=== PATIENT | female | born 1930 | race Caucasian/White ===

== ENCOUNTER 2019-11-03 14:11 | Observation (INO) | payer MEDICARE ==
[~2019-11-03] VITALS: Ht 172.7 cm; Wt 96.3 kg
[2019-11-03 16:11] LABS: BASO % 1 % (0-3); EOS % 1 % (0-3); HEMATOCRIT 24.1 % (36.0-47.0); HEMOGLOBIN 7.5 g/dL (12.0-15.5); LYMPH # 1.6 x10^3/uL (1.0-4.8); LYMPH % 44 % (24-48); MEAN CORPUSCULAR HEMOGLOBIN 23 pg (25-35); MEAN CORPUSCULAR HGB CONC 31 g/dL (31-37); MEAN CORPUSCULAR VOLUME 76 fL (79-100); MONO # 0.3 x10^3/uL (0.0-1.1); MONO % 9 % (0-9); NEUT # 1.6 x10^3/uL (1.8-7.7); NEUT % 44 % (31-73); PLATELET COUNT 167 x10^3/uL (140-400); RED BLOOD COUNT 3.18 x10^6/uL (3.50-5.40); RED CELL DISTRIBUTION WIDTH 17.2 % (11.5-14.5); WHITE BLOOD COUNT 3.5 x10^3/uL (4.0-11.0)
--- NOTE | 2019-11-03 16:12 | EKG ---
[facility] [address] [place] [address] Test Date: 2019-11-03 Test Time: 15:24:02 Pat Name: STEPHANIE MUNROE Department: Room: Gender: F [place] Cutter: : [id number] Requested By: DEEP HUBER Order Number: [id number] Reading MD: Measurements Intervals Harvel Rate: 69 P: AR: QRS: -35 QRSD: 86 T: 19 QT: 478 QTc: 514 Interpretive Statements IRREGULAR RHYTHM, NO P-WAVE FOUND ABNORMAL LEFT AXIS DEVIATION LEFT ANTERIOR FASCICULAR BLOCK PROLONGED QT ABNORMAL ECG RI6.01 No previous ECG available for comparison
[2019-11-03 16:23] LABS: CREATININE 1.2 mg/dL (0.6-1.0); GFR 42.3; POTASSIUM 3.7 mmol/L (3.5-5.1); PROTHROMBIN TIME PATIENT 16.5 SEC (11.7-14.0)
--- NOTE | 2019-11-03 16:25 | PHYS DOC ---
Past Medical History Past Medical History: A-Fib, Diabetes-Type II, Hypertension, [place] Past Surgical History: Appendectomy, Cholecystectomy, Hysterectomy, Other Additional Past Surgical Histo: CARDIAC STENTS Alcohol Use: None Adult General Chief Complaint Chief Complaint: WEAKNESS/GENERALIZED HPI HPI Patient is a 89 year old female, accompanied by her daughter, who presents to the emergency department with complaints of generalized weakness. Patient states she has felt weak all over for the last 6 weeks. She suffers from chronic anemia and she usually has problems with fatigue and weakness when her hemoglobin is l ow. Her hops farmworker, Dr. Gonzales, told her to go to the emergency department because she might need a blood transfusion. Patient states that her hemoglobin was [address] Gonzales. Patient denies any recent bloody stools, blood in her urine, or hematemesis. She denies any abdominal pain, fever, cough, chest pain, palpitations, abdominal pain, nausea, vomiting, diarrhea, dysuria, increased urinary frequency, or back pain. She currently denies any pain. All other ROS is neg unless otherwise noted in HPI. Review of Systems Review of Systems See Above Allergies Allergies Allergies Coded Allergies Type Severity Reaction Last Updated Verified Iodinated Contrast Media Allergy Unknown 11/03/19 Yes Sulfa (Sulfonamide Antibiotics) Allergy Unknown 11/03/19 Yes Physical Exam Physical Exam See Above Constitutional: Well developed, well nourished, no acute distress, non-toxic appearance. [] HENT: Normocephalic, atraumatic, bilateral external ears normal, nose normal. [] Eyes: PERRLA, EOMI, conjunctiva normal, no discharge. [] Neck: Normal range of motion, no stridor. [] Cardiovascular:Heart rate regular rhythm, no murmur [] Lungs & Thorax: Bilateral breath sounds clear to auscultation, Respirations even and unlabored, no retractions, no respiratory distress [] Abdomen: Bowel sounds normal, soft, no tenderness, no masses, no pulsatile masses. [] Skin: Warm, dry, no erythema, no rash, pale. [] Extremities: No cyanosis, ROM intact Neurologic: Alert and oriented X 3, no focal deficits noted. [] Psychologic: Affect normal, judgement normal, mood normal. [] Current Patient Data Vital Signs Vital Signs Date Time Temp Pulse Resp B/P (MAP) Pulse Ox O2 Delivery O2 Flow Rate FiO2 11/03/19 16:47 66 20 95 11/03/19 15:24 98.0 221/87 (131) Room Air 98.0 Lab Values Laboratory Tests Test 11/03/19 15:55 White Blood Count 3.5 x10^3/uL (4.0-11.0) L Red Blood Count 3.18 x10^6/uL (3.50-5.40) L Hemoglobin 7.5 g/dL (12.0-15.5) L Hematocrit 24.1 % (36.0-47.0) L Mean Corpuscular Volume 76 fL (79-100) L Mean Corpuscular Hemoglobin 23 pg (25-35) L Mean Corpuscular Hemoglobin Concent 31 g/dL (31-37) Red Cell Distribution Width 17.2 % (11.5-14.5) H Platelet Count 167 x10^3/uL (140-400) Neutrophils (%) (Auto) 44 % (31-73) Lymphocytes (%) (Auto) 44 % (24-48) Monocytes (%) (Auto) 9 % (0-9) Eosinophils (%) (Auto) 1 % (0-3) Basophils (%) (Auto) 1 % (0-3) Neutrophils # (Auto) 1.6 x10^3/uL (1.8-7.7) L Lymphocytes # (Auto) 1.6 x10^3/uL (1.0-4.8) Monocytes # (Auto) 0.3 x10^3/uL (0.0-1.1) Eosinophils # (Auto) 0.0 x10^3/uL (0.0-0.7) Basophils # (Auto) 0.0 x10^3/uL (0.0-0.2) Prothrombin Time 16.5 SEC (11.7-14.0) H Prothrombin Time INR 1.4 (0.8-1.1) H Activated Partial Thromboplast Time 30 SEC (24-38) Sodium Level 144 mmol/L (136-145) Potassium Level 3.7 mmol/L (3.5-5.1) Chloride Level 107 mmol/L (98-107) Carbon Dioxide Level 32 mmol/L (21-32) Anion Gap 5 (6-14) L Blood Urea Nitrogen 20 mg/dL (7-20) Creatinine 1.2 mg/dL (0.6-1.0) H Estimated GFR (Cockcroft-Gault) 42.3 BUN/Creatinine Ratio 17 (6-20) Glucose Level 200 mg/dL (70-99) H Calcium Level 8.0 mg/dL (8.5-10.1) L Total Bilirubin 0.6 mg/dL (0.2-1.0) Aspartate Amino Transferase (AST) 13 U/L (15-37) L Alanine Aminotransferase (ALT) 10 U/L (14-59) L Alkaline Phosphatase 58 U/L (46-116) Total Protein 6.2 g/dL (6.4-8.2) L Albumin 3.0 g/dL (3.4-5.0) L Albumin/Globulin Ratio 0.9 (1.0-1.7) L Laboratory Tests 11/03/19 15:55 Laboratory Tests 11/03/19 15:55 EKG EKG 1524- Sr rate 69, prolonged QT, NO STEMI read by Dr. Kline[] Radiology/Procedures Radiology/Procedures [] Course & Med Decision Making Course & Med Decision Making Pertinent Labs and Imaging studies reviewed. (See chart for details) 1840- Spoke with Dr. Holder who is the admitting physician, and care was assumed following discussion of patient. Patient's vital signs stable, pt hypertensive hydralazine ordered in the ER. Patient remains afebrile, appears nontoxic, respirations even and unlabored. Patient will be admitted as OBS patient to the med/surg floor. Patient's case and plan of care also discussed with Dr. Hawkins. [] Dragon Disclaimer Dragon Disclaimer This electronic medical record was generated, in whole or in part, using a voice recognition dictation system. Departure Departure Impression: Primary Impression: Anemia Additional Impression: Hypertension Disposition: 09 ADMITTED INPATIENT Admitting Physician: DUSTIN (LIBERTY) Condition: STABLE Referrals: CINTHIA LUCAS MD (PCP) Problem Qualifiers Primary Impression: Anemia Anemia type: unspecified type Qualified Codes: D64.9 - Anemia, unspecified Additional Impression: Hypertension Hypertension type: unspecified Qualified Codes: I10 - Essential (primary) hypertension DEEP HUBER [employer]OTIVE MANUFA[employer]ER Nov 03, 2019 16:25
[2019-11-03 16:29] LABS: TOTAL BILIRUBIN 0.6 mg/dL (0.2-1.0)
[2019-11-03 16:52] LABS: ALBUMIN/GLOBULIN RATIO 0.9 (1.0-1.7); TOTAL PROTEIN 6.2 g/dL (6.4-8.2)
[2019-11-03 19:00] VITALS: BP 186/73
[2019-11-03] MEDS ORDERED: hydrALAZINE 20 MG/ML VIAL. IVP ONE (19:00)
--- NOTE | 2019-11-03 19:33 | SSS ---
ADMIT DATE: CHIEF COMPLAINT: Weakness and anemia. HISTORY OF PRESENT ILLNESS: The patient is a pleasant 89-year-old female who follows with Dr. Faye Gonzales for chronic anemia. Today, she followed up with Dr. Gonzales because she was weak. Dr. Gonzales checked the hemoglobin and it was 7. She was told to go to the ER. I have discussed the case with ER physician. We are going to admit the patient for observation and give her a unit of blood. Hope to get her home tomorrow. It should be noted that her symptoms are rated at 7/10. She has associated anxiety about this. Moving makes it worse and sitting still makes it better. PAST MEDICAL HISTORY: Chronic anemia, AFib, hypertension, myocardial infarction, appendectomy, cholecystectomy, hysterectomy and cardiac stents. ALLERGIES: None. FAMILY HISTORY: Coronary artery disease. SOCIAL HISTORY: She does not drink, smoke or take drugs. MEDICATIONS: Reviewed, please refer to the MRAD. REVIEW OF SYSTEMS: GENERAL: She complains of weakness. SKIN: No bruising, hair changes or rashes. EYES: No blurred, double or loss of vision. NOSE AND THROAT: No history of nosebleeds, hoarseness or sore throat. HEART: No history of palpitations, chest pain or shortness of breath on exertion. LUNGS: Denies cough, hemoptysis, wheezing or shortness of breath. GASTROINTESTINAL: Denies changes in appetite, nausea, vomiting, diarrhea or constipation. GENITOURINARY: No history of frequency, urgency, hesitancy or nocturia. NEUROLOGIC: Denies history of numbness, tingling, tremor or weakness. PSYCHIATRIC: She complains of anxiety. ENDOCRINE: No history of heat or cold intolerance, polyuria or polydipsia. EXTREMITIES: Denies muscle weakness, joint pain, pain on walking or stiffness. PHYSICAL EXAMINATION: VITALS: Within normal limits and are stable. GENERAL: No apparent distress. Alert and oriented. HEENT: Normal cephalic atraumatic, external auditory canals are patent. EYES: Extraocular muscles are intact, pupils are equally round and reactive to light and accommodation. MUSKULOSKELETAL: Well developed, well nourished, good range of motion. ENDOCRINE: No thyromegaly was palpated. LYMPHATICS: No cervical chain or axillary nodes were noted. HEMATOPOIETIC: No bruising NECK: Supple, no JVD, no thyromegaly was noted. LUNGS: Clear to auscultation in all lung king without rhonchi or wheezing. HEART: RRR, S1, S2 present. Peripheral pulses intact, no obvious murmurs were noted. ABDOMEN: Soft, nontender. Positive bowel sounds no organomegaly, normal bowel sounds. EXTREMITIES: Without any cyanosis, clubbing, or edema. Pedal pulses intact, Homans sign is negative. NEUROLOGIC: Normal speech, normal tone. A & O x3, moves all extremities, no obvious focal deficits. PSYCHIATRIC: Normal affect, normal mood. Stable. SKIN: No ulcerations or rashes, good skin turgor, no jaundice. VASCULAR: Good capillary refill, neurovascular bundle appears to be intact. LABORATORY DATA: Hemoglobin is 7. ASSESSMENT AND PLAN: Acute on chronic anemia. We will go ahead and admit the patient for observation and give her 1 unit of blood. Continue her home meds, DVT prophylaxis. Full code. Trend hemoglobin. Hope to discharge tomorrow if stable. ALEXI KOENIG DO DR: TASHI/meli JOB#: [id number] / [id number]
[2019-11-03] MEDS ORDERED: INSU100I27 SQ (21:30)
[2019-11-03] MEDS ORDERED: CARV25TA2 PO (21:30)
[2019-11-03] MEDS ORDERED: FURO40TA4 PO (21:30)
[2019-11-03] MEDS ORDERED: HYDR-2869 PO (21:30)
[2019-11-03] MEDS ORDERED: LISI-334 PO (21:30)
[2019-11-03] MEDS ORDERED: DRON400T PO (21:31)
[2019-11-03] MEDS ORDERED: PRAV40TA2 PO (21:32)
[2019-11-03] MEDS ORDERED: APIX5TAB PO (21:33)
--- NOTE | 2019-11-03 22:00 | NUR ---
The patient, STEPHANIE MUNROE, 89 y/o, F admitted by ALEXI KOENIG III, DO, was given written information regarding hospital policies, unit procedures and contact persons. Valuables were checked and Pt belonging left in room with Pt.
[2019-11-03 22:33] VITALS: BP 175/72
[2019-11-03 22:51] VITALS: BP 152/73
[2019-11-03 23:00] VITALS: BP 175/72
[2019-11-03] MEDS ORDERED: INSULIN GLARGINE SYRINGE. SQ SCH (23:00)
[2019-11-03] MEDS: DRONEDARONE HCL 400 MG TABLET PO SCH (23:33)
[2019-11-03] MEDS: APIXABAN 5 MG TABLET. PO SCH (23:33)
[2019-11-03] MEDS: LISINOPRIL 20 MG TABLET PO SCH (23:34)
[2019-11-03 23:51] VITALS: BP 182/85
[2019-11-04 00:21] VITALS: BP 181/82
[2019-11-04 01:15] VITALS: BP 156/78
[2019-11-04 03:00] VITALS: BP 182/79
[2019-11-04 03:05] LABS: BILIRUBIN,URINE NEGATIVE (NEG); CLARITY,URINE CLEAR; COLOR,URINE YELLOW; NITRITE,URINE NEGATIVE (NEG); PROTEIN,URINE NEGATIVE (NEG-TRACE)
[2019-11-04 03:16] LABS: BACTERIA,URINE 0 /HPF (0-FEW); RBC,URINE OCC /HPF (0-2); SQUAMOUS EPITHELIAL CELL,UR FEW /LPF; WBC,URINE >40 /HPF (0-4)
[2019-11-04 03:17] LABS: HYALINE CASTS, URINE FEW /HPF
[2019-11-04 07:00] VITALS: BP 199/93
[2019-11-04] MEDS ORDERED: CARVEDILOL 12.5 MG TABLET. PO SCH (08:00)
[2019-11-04] MEDS: DRONEDARONE HCL 400 MG TABLET PO SCH (08:35)
[2019-11-04] MEDS: APIXABAN 5 MG TABLET. PO SCH (08:35)
[2019-11-04] MEDS: LISINOPRIL 20 MG TABLET PO SCH (08:36)
[2019-11-04] MEDS: INSULIN LISPRO 300 UNITS/3 ML VIAL. SQ SCH ×2 (09:00→11:52)
[2019-11-04] MEDS ORDERED: cloNIDine HCL 0.1 MG TABLET PO PRN (09:00)
[2019-11-04] MEDS ORDERED: FUROSEMIDE 40 MG TABLET. PO SCH (09:00)
[2019-11-04] MEDS ORDERED: IV DEXTROSE 5% 250 ML BAG. IV PRN (09:00)
[2019-11-04] MEDS ORDERED: ONDANSETRON PF 4 MG/2 ML VIAL. IVP PRN (09:00)
[2019-11-04] MEDS ORDERED: ACETAMINOPHEN 500 MG TABLET PO PRN (09:00)
[2019-11-04] MEDS ORDERED: DEXTROSE 50% 25 GM / 50ML DISP.SYRIN. IV PRN (09:00)
[2019-11-04] MEDS ORDERED: ACETAMINOPHEN/CODEINE 300/30MG TABLET. PO PRN (09:00)
[2019-11-04] MEDS ORDERED: cloNIDine HCL 0.1 MG TABLET PO ONE (09:15)
[2019-11-04 09:30] LABS: BASO # 0.1 x10^3/uL (0.0-0.2); BASO % 2 % (0-3); EOS % 1 % (0-3); HEMATOCRIT 26.8 % (36.0-47.0); HEMOGLOBIN 8.4 g/dL (12.0-15.5); LYMPH % 28 % (24-48); MEAN CORPUSCULAR HEMOGLOBIN 24 pg (25-35); MEAN CORPUSCULAR HGB CONC 31 g/dL (31-37); MEAN CORPUSCULAR VOLUME 75 fL (79-100); MONO # 0.3 x10^3/uL (0.0-1.1); MONO % 10 % (0-9); NEUT % 60 % (31-73); PLATELET COUNT 164 x10^3/uL (140-400); RED BLOOD COUNT 3.58 x10^6/uL (3.50-5.40); RED CELL DISTRIBUTION WIDTH 17.6 % (11.5-14.5); WHITE BLOOD COUNT 3.4 x10^3/uL (4.0-11.0)
--- NOTE | 2019-11-04 09:34 | PDOC2 ---
CONSULT Date of Consult Date of Consult DATE: 11/04/19 TIME: : Reason for consultation: Anemia Consult: Hematology oncology, Dr. Kenia Gonzales History of present illness: She is an 89-year-old female with weakness, acute, severe, worsened due to anemia, improved with transfusion, admitted for blood transfusion with a hemoglobin of 7.5, MCV of 76, recently started a picks up and full dose from her liquor establishment manager with a history of A. fib. Past medical history: Atrial fibrillation Lymphedema Coronary artery disease [place] Iron deficient anemia, gastric polyp in 2016, on anticoagulation, sprue panel negative, received 4 units transfusions July 2016, IV iron as needed Hypertension Hyperlipidemia Diabetes mellitus 2 CHF with ischemic cardiomyopathy DVT on Coumadin many years in the past remotely Macular degeneration with blindness Severe pulmonary hypertension PVD Skin cancer TIA Past surgical history: Vascular stents Colonoscopy EGD Left ankle fracture repair CEA Eye surgery Appendectomy Goiter surgery Hysterectomy Cardiac catheterization Skin cancer excision Cholecystectomy Allergies: Sulfa, iodine, latex Medications: See attached list Social history: , no tobacco or alcohol Family history: Mom with an unknown tumor Review of systems: Weakness, lymphedema, no known bleeding, blindness, debility, otherwise current 10 point review of systems negative Physical exam: Vitals reviewed Gen.: Elderly obese female resting in bed in no acute distress, not able to see me HEENT: mucous membranes moist, head normocephalic atraumatic Neck: Supple, no lymphadenopathy Lymph nodes: No palpable lymphadenopathy neck or axilla on limited exam Lungs: Breathing comfortably without evidence of respiratory distress Abdomen: Soft, nontender, nondistended Extremities: No cyanosis, does have bilateral lower extremity lymphedema Skin: No obvious rashes or skin breakdown Neuro: Alert and oriented 3 Psych: Pleasant mood and affect Lab reviewed: White count 3.5, hemoglobin 7.5, platelets 167, MCV of 76 INR 1.4 PTT 38 Urinalysis moderate leukoesterase, greater than 40 white blood cells Creatinine 1.2 Rads reviewed: None available here this admit Case discussed with: Patient and her daughter, records reviewed in [facility] and [facility], including labs and radiology, please see note for summary details. Assessment and Plan: She is an 89-year-old female with anemia, history of iron deficiency, history of gastric polyp, was on aspirin in the past but recently transition to apixaban full dose. Heart failure with coronary artery disease and A. fib: Would consider half dose apixaban, they will discuss this with their liquor establishment manager Anemia: Some improvement after 1 unit transfusion History of iron deficiency: We'll check iron levels and re-dose IV iron, can be done as an outpatient, as needed Debility: Improved after transfusion, may need therapy at home? Defer to primary Disposition: Likely today Hypertension: Per others Thank you kindly for this consultation, and please don't hesitate to call with further questions. Current Problem List Problem List Problems Medical Problems: (1) Anemia Status: Acute (2) Hypertension Status: Acute Current Medications Current Medications Current Medications Hydralazine HCl (Apresoline Inj) 10 mg 1X ONCE IVP Last administered on 11/03/19at 19:00; Start 11/03/19 at 19:00; Stop 11/03/19 at 19:01; Status DC Apixaban (Eliquis) 5 mg BID PO Last administered on 11/04/19at 08:35; Start 10/09 04/26 at 23:00 Dronedarone (Multaq) 400 mg BID PO Last administered on 11/04/19at 08:35; Start 11/03/19 at 23:00 Furosemide (Lasix) 40 mg DAILY PO Last administered on 11/04/19at 08:35; Start 11/04/19 at 09:00 Hydralazine HCl (Apresoline) 50 mg TID PO Last administered on 11/04/19at 08:35; Start 11/03/19 at 23:00 Lisinopril (Prinivil) 20 mg BID PO Last administered on 11/04/19at 08:36; Start 11/03/19 at 23:00 Carvedilol (Coreg) 25 mg BIDWMEALS PO Last administered on 11/04/19at 08:36; Start 11/04/19 at 08:00 Non-Formulary Medication (Insulin Detemir (Levemir Flextouch)) 16 unit HS SQ ; Start 11/04/19 at 21:00; Status UNV Atorvastatin Calcium (Lipitor) 10 mg HS PO ; Start 11/04/19 at 21:00 Insulin Glargine (Lantus Syringe) 16 unit QHS SQ Last administered on 11/03/19at 23:41; Start 1/27/20 at 23:00 Insulin Human Lispro (HumaLOG) 0-9 UNITS TIDWMEALS SQ ; Start 11/04/19 at 09:00 Dextrose (Dextrose 50%-Water Syringe) 12.5 gm PRN Q15MIN PRN IV SEE COMMENTS; Start 11/04/19 at 09:00 Dextrose (Iv Dextrose 5%) 250 ml PRN Q15MIN PRN IV SEE COMMENTS; Start 11/04/19 at 09:00 Acetaminophen (Tylenol) 500 mg PRN Q6HRS PRN PO MILD PAIN / TEMP; Start 11/04/19 at 09:00 Acetaminophen/ Codeine Phosphate (Tylenol #3) 1 tab PRN Q6HRS PRN PO MODERATE PAIN; Start 11/04/19 at 09:00 Ondansetron HCl (Zofran) 4 mg PRN Q6HRS PRN IVP NAUSEA/VOMITING; Start 11/04/19 at 09:00 Clonidine HCl (Catapres) 0.1 mg PRN Q1HR PRN PO HYPERTENSION; Start 11/04/19 at 09:00 Clonidine HCl (Catapres) 0.1 mg 1X ONCE PO ; Start 11/04/19 at 09:15; Stop 11/04/19 at 09:16; Status DC Active Scripts Active Reported Pravastatin Sodium 40 Mg Tablet 1 Tab PO DAILY Multaq (Dronedarone Hcl) 400 Mg Tablet 1 Tab PO BID Levemir Flextouch (Insulin Detemir) 100 Unit/1 Ml Insuln.pen 16 Unit SQ HS Carvedilol 25 Mg Tablet 25 Mg PO BIDWMEALS Lisinopril 20 Mg Tablet 20 Mg PO BID Hydralazine Hcl 50 Mg Tablet 1 Tab PO TID Furosemide 40 Mg Tablet 40 Mg PO DAILY Eliquis (Apixaban) 5 Mg Tablet 5 Mg PO BID Allergies Allergies: Coded Allergies: latex (Verified Allergy, Mild, Rash, 11/04/19) Iodinated Contrast Media (Verified Allergy, Unknown, 11/03/19) Sulfa (Sulfonamide Antibiotics) (Verified Allergy, Unknown, 11/03/19) Vitals VITALS Vital Signs Date Time Temp Pulse Resp B/P (MAP) Pulse Ox O2 Delivery O2 Flow Rate FiO2 11/04/19 08:36 78 199/93 11/04/19 07:00 98.0 18 94 Room Air 98.0 Labs Labs Laboratory Tests Test 11/03/19 15:55 11/03/19 21:06 11/04/19 01:20 11/04/19 07:32 White Blood Count 3.5 x10^3/uL (4.0-11.0) Red Blood Count 3.18 x10^6/uL (3.50-5.40) Hemoglobin 7.5 g/dL (12.0-15.5) Hematocrit 24.1 % (36.0-47.0) Mean Corpuscular Volume 76 fL (79-100) Mean Corpuscular Hemoglobin 23 pg (25-35) Mean Corpuscular Hemoglobin Concent 31 g/dL (31-37) Red Cell Distribution Width 17.2 % (11.5-14.5) Platelet Count 167 x10^3/uL (140-400) Neutrophils (%) (Auto) 44 % (31-73) Lymphocytes (%) (Auto) 44 % (24-48) Monocytes (%) (Auto) 9 % (0-9) Eosinophils (%) (Auto) 1 % (0-3) Basophils (%) (Auto) 1 % (0-3) Neutrophils # (Auto) 1.6 x10^3/uL (1.8-7.7) Lymphocytes # (Auto) 1.6 x10^3/uL (1.0-4.8) Monocytes # (Auto) 0.3 x10^3/uL (0.0-1.1) Eosinophils # (Auto) 0.0 x10^3/uL (0.0-0.7) Basophils # (Auto) 0.0 x10^3/uL (0.0-0.2) Prothrombin Time 16.5 SEC (11.7-14.0) Prothromb Time International Ratio 1.4 (0.8-1.1) Activated Partial Thromboplast Time 30 SEC (24-38) Sodium Level 144 mmol/L (136-145) Potassium Level 3.7 mmol/L (3.5-5.1) Chloride Level 107 mmol/L (98-107) Carbon Dioxide Level 32 mmol/L (21-32) Anion Gap 5 (6-14) Blood Urea Nitrogen 20 mg/dL (7-20) Creatinine 1.2 mg/dL (0.6-1.0) Estimated GFR (Cockcroft-Gault) 42.3 BUN/Creatinine Ratio 17 (6-20) Glucose Level 200 mg/dL (70-99) Calcium Level 8.0 mg/dL (8.5-10.1) Total Bilirubin 0.6 mg/dL (0.2-1.0) Aspartate Amino Transf (AST/SGOT) 13 U/L (15-37) Alanine Aminotransferase (ALT/SGPT) 10 U/L (14-59) Alkaline Phosphatase 58 U/L (46-116) Total Protein 6.2 g/dL (6.4-8.2) Albumin 3.0 g/dL (3.4-5.0) Albumin/Globulin Ratio 0.9 (1.0-1.7) Glucose (Fingerstick) 138 mg/dL (70-99) 110 mg/dL (70-99) Urine Collection Type Unknown Urine Color Yellow Urine Clarity Clear Urine pH 7.0 Urine Specific [place] 1.015 Urine Protein Negative mg/dL (NEG-TRACE) Urine Glucose (UA) Negative mg/dL (NEG) Urine Ketones (Stick) Negative mg/dL (NEG) Urine Blood Negative (NEG) Urine Nitrite Negative (NEG) Urine Bilirubin Negative (NEG) Urine Urobilinogen Dipstick 1.0 mg/dL (0.2 mg/dL) Urine Leukocyte Esterase Moderate (NEG) Urine RBC Occ /HPF (0-2) Urine WBC >40 /HPF (0-4) Urine Squamous Epithelial Cells Few /LPF Urine Transitional Epithelial Cells Occ /LPF Urine Renal Epithelial Cells Occ /LPF Urine Bacteria 0 /HPF (0-FEW) Urine Hyaline Casts Few /HPF Urine Mucus Mod /LPF Laboratory Tests Test 11/03/19 15:55 11/03/19 21:06 11/04/19 01:20 11/04/19 07:32 White Blood Count 3.5 x10^3/uL (4.0-11.0) Red Blood Count 3.18 x10^6/uL (3.50-5.40) Hemoglobin 7.5 g/dL (12.0-15.5) Hematocrit 24.1 % (36.0-47.0) Mean Corpuscular Volume 76 fL (79-100) Mean Corpuscular Hemoglobin 23 pg (25-35) Mean Corpuscular Hemoglobin Concent 31 g/dL (31-37) Red Cell Distribution Width 17.2 % (11.5-14.5) Platelet Count 167 x10^3/uL (140-400) Neutrophils (%) (Auto) 44 % (31-73) Lymphocytes (%) (Auto) 44 % (24-48) Monocytes (%) (Auto) 9 % (0-9) Eosinophils (%) (Auto) 1 % (0-3) Basophils (%) (Auto) 1 % (0-3) Neutrophils # (Auto) 1.6 x10^3/uL (1.8-7.7) Lymphocytes # (Auto) 1.6 x10^3/uL (1.0-4.8) Monocytes # (Auto) 0.3 x10^3/uL (0.0-1.1) Eosinophils # (Auto) 0.0 x10^3/uL (0.0-0.7) Basophils # (Auto) 0.0 x10^3/uL (0.0-0.2) Prothrombin Time 16.5 SEC (11.7-14.0) Prothromb Time International Ratio 1.4 (0.8-1.1) Activated Partial Thromboplast Time 30 SEC (24-38) Sodium Level 144 mmol/L (136-145) Potassium Level 3.7 mmol/L (3.5-5.1) Chloride Level 107 mmol/L (98-107) Carbon Dioxide Level 32 mmol/L (21-32) Anion Gap 5 (6-14) Blood Urea Nitrogen 20 mg/dL (7-20) Creatinine 1.2 mg/dL (0.6-1.0) Estimated GFR (Cockcroft-Gault) 42.3 BUN/Creatinine Ratio 17 (6-20) Glucose Level 200 mg/dL (70-99) Calcium Level 8.0 mg/dL (8.5-10.1) Total Bilirubin 0.6 mg/dL (0.2-1.0) Aspartate Amino Transf (AST/SGOT) 13 U/L (15-37) Alanine Aminotransferase (ALT/SGPT) 10 U/L (14-59) Alkaline Phosphatase 58 U/L (46-116) Total Protein 6.2 g/dL (6.4-8.2) Albumin 3.0 g/dL (3.4-5.0) Albumin/Globulin Ratio 0.9 (1.0-1.7) Glucose (Fingerstick) 138 mg/dL (70-99) 110 mg/dL (70-99) Urine Collection Type Unknown Urine Color Yellow Urine Clarity Clear Urine pH 7.0 Urine Specific [place] 1.015 Urine Protein Negative mg/dL (NEG-TRACE) Urine Glucose (UA) Negative mg/dL (NEG) Urine Ketones (Stick) Negative mg/dL (NEG) Urine Blood Negative (NEG) Urine Nitrite Negative (NEG) Urine Bilirubin Negative (NEG) Urine Urobilinogen Dipstick 1.0 mg/dL (0.2 mg/dL) Urine Leukocyte Esterase Moderate (NEG) Urine RBC Occ /HPF (0-2) Urine WBC >40 /HPF (0-4) Urine Squamous Epithelial Cells Few /LPF Urine Transitional Epithelial Cells Occ /LPF Urine Renal Epithelial Cells Occ /LPF Urine Bacteria 0 /HPF (0-FEW) Urine Hyaline Casts Few /HPF Urine Mucus Mod /LPF KENAI GONZALES MD Nov 04, 2019 09:34
--- NOTE | 2019-11-04 10:48 | PDOC3 ---
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 Atrial fibrillation Lymphedema Coronary artery disease [place] Iron deficient anemia, gastric polyp in 2016, on anticoagulation, sprue panel negative, received 4 units transfusions July 2016, IV iron as needed Hypertension Hyperlipidemia Diabetes mellitus 2 CHF with ischemic cardiomyopathy DVT on Coumadin many years in the past remotely Macular degeneration with blindness Severe pulmonary hypertension PVD Skin cancer TIA Final Diagnosis Problems Medical Problems: (1) Anemia Status: Acute (2) Hypertension Status: Acute Brief Hospital Course Allergies Allergies Coded Allergies Type Severity Reaction Last Updated Verified latex Allergy Mild Rash 11/04/19 Yes Iodinated Contrast Media Allergy Unknown 11/03/19 Yes Sulfa (Sulfonamide Antibiotics) Allergy Unknown 11/03/19 Yes Vital Signs Vital Signs Date Time Temp Pulse Resp B/P (MAP) Pulse Ox O2 Delivery O2 Flow Rate FiO2 11/04/19 08:36 78 199/93 11/04/19 07:00 98.0 18 94 Room Air 98.0 Lab Results Laboratory Tests Test 11/03/19 15:55 11/03/19 21:06 11/04/19 01:20 11/04/19 07:32 White Blood Count 3.5 x10^3/uL (4.0-11.0) Red Blood Count 3.18 x10^6/uL (3.50-5.40) Hemoglobin 7.5 g/dL (12.0-15.5) Hematocrit 24.1 % (36.0-47.0) Mean Corpuscular Volume 76 fL (79-100) Mean Corpuscular Hemoglobin 23 pg (25-35) Mean Corpuscular Hemoglobin Concent 31 g/dL (31-37) Red Cell Distribution Width 17.2 % (11.5-14.5) Platelet Count 167 x10^3/uL (140-400) Neutrophils (%) (Auto) 44 % (31-73) Lymphocytes (%) (Auto) 44 % (24-48) Monocytes (%) (Auto) 9 % (0-9) Eosinophils (%) (Auto) 1 % (0-3) Basophils (%) (Auto) 1 % (0-3) Neutrophils # (Auto) 1.6 x10^3/uL (1.8-7.7) Lymphocytes # (Auto) 1.6 x10^3/uL (1.0-4.8) Monocytes # (Auto) 0.3 x10^3/uL (0.0-1.1) Eosinophils # (Auto) 0.0 x10^3/uL (0.0-0.7) Basophils # (Auto) 0.0 x10^3/uL (0.0-0.2) Prothrombin Time 16.5 SEC (11.7-14.0) Prothromb Time International Ratio 1.4 (0.8-1.1) Activated Partial Thromboplast Time 30 SEC (24-38) Sodium Level 144 mmol/L (136-145) Potassium Level 3.7 mmol/L (3.5-5.1) Chloride Level 107 mmol/L (98-107) Carbon Dioxide Level 32 mmol/L (21-32) Anion Gap 5 (6-14) Blood Urea Nitrogen 20 mg/dL (7-20) Creatinine 1.2 mg/dL (0.6-1.0) Estimated GFR (Cockcroft-Gault) 42.3 BUN/Creatinine Ratio 17 (6-20) Glucose Level 200 mg/dL (70-99) Calcium Level 8.0 mg/dL (8.5-10.1) Total Bilirubin 0.6 mg/dL (0.2-1.0) Aspartate Amino Transf (AST/SGOT) 13 U/L (15-37) Alanine Aminotransferase (ALT/SGPT) 10 U/L (14-59) Alkaline Phosphatase 58 U/L (46-116) Total Protein 6.2 g/dL (6.4-8.2) Albumin 3.0 g/dL (3.4-5.0) Albumin/Globulin Ratio 0.9 (1.0-1.7) Glucose (Fingerstick) 138 mg/dL (70-99) 110 mg/dL (70-99) Urine Collection Type Unknown Urine Color Yellow Urine Clarity Clear Urine pH 7.0 Urine Specific [place] 1.015 Urine Protein Negative mg/dL (NEG-TRACE) Urine Glucose (UA) Negative mg/dL (NEG) Urine Ketones (Stick) Negative mg/dL (NEG) Urine Blood Negative (NEG) Urine Nitrite Negative (NEG) Urine Bilirubin Negative (NEG) Urine Urobilinogen Dipstick 1.0 mg/dL (0.2 mg/dL) Urine Leukocyte Esterase Moderate (NEG) Urine RBC Occ /HPF (0-2) Urine WBC >40 /HPF (0-4) Urine Squamous Epithelial Cells Few /LPF Urine Transitional Epithelial Cells Occ /LPF Urine Renal Epithelial Cells Occ /LPF Urine Bacteria 0 /HPF (0-FEW) Urine Hyaline Casts Few /HPF Urine Mucus Mod /LPF Test 11/04/19 09:00 White Blood Count 3.4 x10^3/uL (4.0-11.0) Red Blood Count 3.58 x10^6/uL (3.50-5.40) Hemoglobin 8.4 g/dL (12.0-15.5) Hematocrit 26.8 % (36.0-47.0) Mean Corpuscular Volume 75 fL (79-100) Mean Corpuscular Hemoglobin 24 pg (25-35) Mean Corpuscular Hemoglobin Concent 31 g/dL (31-37) Red Cell Distribution Width 17.6 % (11.5-14.5) Platelet Count 164 x10^3/uL (140-400) Neutrophils (%) (Auto) 60 % (31-73) Lymphocytes (%) (Auto) 28 % (24-48) Monocytes (%) (Auto) 10 % (0-9) Eosinophils (%) (Auto) 1 % (0-3) Basophils (%) (Auto) 2 % (0-3) Neutrophils # (Auto) 2.0 x10^3/uL (1.8-7.7) Lymphocytes # (Auto) 1.0 x10^3/uL (1.0-4.8) Monocytes # (Auto) 0.3 x10^3/uL (0.0-1.1) Eosinophils # (Auto) 0.0 x10^3/uL (0.0-0.7) Basophils # (Auto) 0.1 x10^3/uL (0.0-0.2) Iron Level 465 ug/dL (50-170) Total Iron Binding Capacity 464 ug/dL (250-450) Iron Saturation 100 % (15-34) Ferritin 55 ng/mL (8-252) Laboratory Tests Test 11/03/19 15:55 11/03/19 21:06 11/04/19 01:11/04/19 07:32 White Blood Count 3.5 x10^3/uL (4.0-11.0) Red Blood Count 3.18 x10^6/uL (3.50-5.40) Hemoglobin 7.5 g/dL (12.0-15.5) Hematocrit 24.1 % (36.0-47.0) Mean Corpuscular Volume 76 fL (79-100) Mean Corpuscular Hemoglobin 23 pg (25-35) Mean Corpuscular Hemoglobin Concent 31 g/dL (31-37) Red Cell Distribution Width 17.2 % (11.5-14.5) Platelet Count 167 x10^3/uL (140-400) Neutrophils (%) (Auto) 44 % (31-73) Lymphocytes (%) (Auto) 44 % (24-48) Monocytes (%) (Auto) 9 % (0-9) Eosinophils (%) (Auto) 1 % (0-3) Basophils (%) (Auto) 1 % (0-3) Neutrophils # (Auto) 1.6 x10^3/uL (1.8-7.7) Lymphocytes # (Auto) 1.6 x10^3/uL (1.0-4.8) Monocytes # (Auto) 0.3 x10^3/uL (0.0-1.1) Eosinophils # (Auto) 0.0 x10^3/uL (0.0-0.7) Basophils # (Auto) 0.0 x10^3/uL (0.0-0.2) Prothrombin Time 16.5 SEC (11.7-14.0) Prothromb Time International Ratio 1.4 (0.8-1.1) Activated Partial Thromboplast Time 30 SEC (24-38) Sodium Level 144 mmol/L (136-145) Potassium Level 3.7 mmol/L (3.5-5.1) Chloride Level 107 mmol/L (98-107) Carbon Dioxide Level 32 mmol/L (21-32) Anion Gap 5 (6-14) Blood Urea Nitrogen 20 mg/dL (7-20) Creatinine 1.2 mg/dL (0.6-1.0) Estimated GFR (Cockcroft-Gault) 42.3 BUN/Creatinine Ratio 17 (6-20) Glucose Level 200 mg/dL (70-99) Calcium Level 8.0 mg/dL (8.5-10.1) Total Bilirubin 0.6 mg/dL (0.2-1.0) Aspartate Amino Transf (AST/SGOT) 13 U/L (15-37) Alanine Aminotransferase (ALT/SGPT) 10 U/L (14-59) Alkaline Phosphatase 58 U/L (46-116) Total Protein 6.2 g/dL (6.4-8.2) Albumin 3.0 g/dL (3.4-5.0) Albumin/Globulin Ratio 0.9 (1.0-1.7) Glucose (Fingerstick) 138 mg/dL (70-99) 110 mg/dL (70-99) Urine Collection Type Unknown Urine Color Yellow Urine Clarity Clear Urine pH 7.0 Urine Specific [place] 1.015 Urine Protein Negative mg/dL (NEG-TRACE) Urine Glucose (UA) Negative mg/dL (NEG) Urine Ketones (Stick) Negative mg/dL (NEG) Urine Blood Negative (NEG) Urine Nitrite Negative (NEG) Urine Bilirubin Negative (NEG) Urine Urobilinogen Dipstick 1.0 mg/dL (0.2 mg/dL) Urine Leukocyte Esterase Moderate (NEG) Urine RBC Occ /HPF (0-2) Urine WBC >40 /HPF (0-4) Urine Squamous Epithelial Cells Few /LPF Urine Transitional Epithelial Cells Occ /LPF Urine Renal Epithelial Cells Occ /LPF Urine Bacteria 0 /HPF (0-FEW) Urine Hyaline Casts Few /HPF Urine Mucus Mod /LPF Test 11/04/19 09:00 White Blood Count 3.4 x10^3/uL (4.0-11.0) Red Blood Count 3.58 x10^6/uL (3.50-5.40) Hemoglobin 8.4 g/dL (12.0-15.5) Hematocrit 26.8 % (36.0-47.0) Mean Corpuscular Volume 75 fL (79-100) Mean Corpuscular Hemoglobin 24 pg (25-35) Mean Corpuscular Hemoglobin Concent 31 g/dL (31-37) Red Cell Distribution Width 17.6 % (11.5-14.5) Platelet Count 164 x10^3/uL (140-400) Neutrophils (%) (Auto) 60 % (31-73) Lymphocytes (%) (Auto) 28 % (24-48) Monocytes (%) (Auto) 10 % (0-9) Eosinophils (%) (Auto) 1 % (0-3) Basophils (%) (Auto) 2 % (0-3) Neutrophils # (Auto) 2.0 x10^3/uL (1.8-7.7) Lymphocytes # (Auto) 1.0 x10^3/uL (1.0-4.8) Monocytes # (Auto) 0.3 x10^3/uL (0.0-1.1) Eosinophils # (Auto) 0.0 x10^3/uL (0.0-0.7) Basophils # (Auto) 0.1 x10^3/uL (0.0-0.2) Iron Level 465 ug/dL (50-170) Total Iron Binding Capacity 464 ug/dL (250-450) Iron Saturation 100 % (15-34) Ferritin 55 ng/mL (8-252) Brief Hospital Course Ms. Langford is a 89 old white female known to Dr Valentino jernigan for chronic IDALIA anemia and gets IV venofer as OP intermittently, She comes for gen weakness x 6 weeks and anemai hgb 7,5 and got BT and now 8.5 CLeared for dc with dtr to home today, cont your asa 81 and eliquis for a fib, She has iV venofer scheduled for next sunday dw RN and dtr OBS stay Discharge Information Condition at Discharge: Improved, Stable Disposition/Orders: D/C to Home Scheduled Apixaban (Eliquis) 5 Mg Tablet, 5 MG PO BID for a fib, (Reported) Entered as Reported by: WILLAM CANDELARIO on 11/03/192132 Last Action: Continued on 11/03/192245 by WILLAM CANDELARIO Carvedilol (Carvedilol) 25 Mg Tablet, 25 MG PO BIDWMEALS for CARDIAC, (Reported) Entered as Reported by: WILLAM CANDELARIO on 11/03/192129 Last Action: Converted on 11/03/192245 by WILLAM CANDELARIO Dronedarone Hcl (Multaq) 400 Mg Tablet, 1 TAB PO BID for a fib, #180 Ref 1 (Reported) Entered as Reported by: WILLAM CANDELARIO on 1/27/20 2131 Last Action: Continued on 11/03/192245 by WILLAM CANDELARIO Furosemide (Furosemide) 40 Mg Tablet, 40 MG PO DAILY for blood pressure, (Reported) Entered as Reported by: WILLAM CANDELARIO on 11/03/192129 Last Action: Continued on 11/03/192245 by WILLAM CANDELARIO Hydralazine Hcl (Hydralazine Hcl) 50 Mg Tablet, 1 TAB PO TID for blood pressure, #270 Ref 3 (Reported) Entered as Reported by: WILLAM CANDELARIO on 11/03/192129 Last Action: Continued on 11/03/192245 by WILLAM CANDELARIO Insulin Detemir (Levemir Flextouch) 100 Unit/1 Ml Insuln.pen, 16 UNIT SQ HS for blood sugar, (Reported) Entered as Reported by: WILLAM CANDELARIO on 11/03/192129 Last Action: Converted on 11/03/192245 by WILLAM CANDELARIO Lisinopril (Lisinopril) 20 Mg Tablet, 20 MG PO BID for FOR HYPERTENSION, #30 Ref 0 (Reported) Entered as Reported by: WILLAM CANDELARIO on 11/03/192129 Last Action: Continued on 11/03/192245 by WILLAM CANDELARIO Pravastatin Sodium (Pravastatin Sodium) 40 Mg Tablet, 1 TAB PO DAILY for cholesteral, #90 Ref 1 (Reported) Entered as Reported by: WILLAM CANDELARIO on 11/03/192131 Last Action: Converted on 11/03/192245 by SALLIE ROCHA MD Nov 04, 2019 10:48
[2019-11-04 11:00] VITALS: BP 146/60
--- NOTE | 2019-11-04 12:50 | NUR ---
Discharge Note: PT DISCHARGED HOME WITH SELF CARE. PT LEFT FACILITY VIA PRIVATE VEHICLE WITH DAUGHTER AT 1251. PT STABLE AND ALERT UPON DISCHARGE. PT PIV REMOVED FROM L AC AND R FA WITHOUT COMPLICATIONS, BANDAGE APPLIED. PT EDUCATED ABOUT DISHCARGE INSTRUCTIONS, DISCHARGE MEDICATIONS, AND FOLLOW-UP INSTRUCTIONS. NO CONCERNS VOICED AT THIS TIME. PT LEFT WITH ALL PERSONAL BELONGINGS. STEPHANIE MUNROE Discharge instructions and discharge home medications reviewed with Patient and a copy given. All questions have been answered and understanding verbalized.
[2019-11-04] MEDS ORDERED: INSULIN DETEMIR 16 UNIT SQ SCH (21:00)
[2019-11-04] MEDS ORDERED: ATORVASTATIN CALCIUM 10 MG TABLET. PO SCH (21:00)
[2019-11-05 02:08] LABS: HEMOGLOBIN A1C 5.9 % (4.8-5.6)
[2019-11-07] MEDS ORDERED: CALC200T23 PO (12:52)
[2019-11-07] MEDS ORDERED: ACET500T68 PO (12:52)
== END 2019-11-04 12:52 | disposition home or self-care (01) ==
LOC: ER 14:11 → 4 NORTH 18:40
PROVIDERS: ADMIT Internal Medicine; ATTEND Internal Medicine
DX: D64.89 Other specified anemias (principal); D53.9 Nutritional anemia, unspecified; I10 Essential (primary) hypertension; I48.91 Unspecified atrial fibrillation; I25.2 Old myocardial infarction; E11.9 Type 2 diabetes mellitus without complications; Z90.49 Acquired absence of other specified parts of digestive tract; Z90.710 Acquired absence of both cervix and uterus; Z95.1 Presence of aortocoronary bypass graft
CPT/HCPCS: 36415; 36430; 80053; 81001; 82728; 82962; 83036; 83540; 83550; 85025; 85610; 85730; 86850; 86900; 86901; 86920; 87086; 93005; 96372; 96374; 99284; G0378; J0360; J1815; P9016; G0379